=== PATIENT | female | born 1995 | race Caucasian/White ===

== ENCOUNTER → 2018-03-25 | Outpatient (CLI) | payer OTHER ==
--- NOTE | 2018-03-25 12:59 | MR ---
EXAMINATION TYPE: MR brain wo con DATE OF EXAM: 03/25/2018 COMPARISON: NONE HISTORY: Headache TECHNIQUE: Multiplanar, multisequence imaging of the brain and brainstem is performed without IV cont rast. FINDINGS: Diffusion weighted images demonstrate no evidence of a recent infarct or other diffusion abnormality. There is no significant white matter signal abnormality. Slight prominence of CSF in the midline of t he posterior aspect posterior fossa could reflect arachnoid cyst measuring 1.8 cm AP diameter by 1.6 cm transversely by 3.7 cm craniocaudal diameter sagittal image 10. The ventricular system and cistern al spaces are normal in size and appearance. The brain volume is age appropriate. Midline structures demonstrate normal morphology. The craniocervical junction appears within normal limits. Normal vascular flow voids are present. The visualized sinuses are clear and the globes are i ntact. IMPRESSION: Probable posterior midline posterior fossa 3.7 cm vertical oriented arachnoid cyst with l ocal mass effect.
== END | disposition home or self-care (01) ==
LOC: RADMRIMAIN 12:10
PROVIDERS: ATTEND Psychiatry & Neurology Neurology
DX: R51 Headache (principal); Z88.0 Allergy status to penicillin; Z88.8 Allergy status to other drugs, medicaments and biological substances
CPT/HCPCS: 70551

== ENCOUNTER → 2021-04-05 | Outpatient (CLI) | payer OTHER ==
--- NOTE | 2021-04-05 13:58 | XR ---
EXAMINATION TYPE: XR chest 2V DATE OF EXAM: 04/05/2021 COMPARISON: Chest x-ray 01/26/2014 HISTORY: R61 GEN HYPERHIDROSIS TECHNIQUE: Frontal and lateral views of the chest are obtained. FINDINGS: There is no focal air space opacity, pleural effusion, or pneumothorax seen. The cardiac silhouette size is within normal limits. Prominent lung line can be seen in COPD. The osseous structu res are intact. IMPRESSION: No acute cardiopulmonary process.
== END | disposition home or self-care (01) ==
LOC: RADXRYALE 11:45
PROVIDERS: ATTEND Physician Assistant
DX: R61 Generalized hyperhidrosis (principal)
CPT/HCPCS: 71046

== ENCOUNTER → 2021-10-02 | Outpatient (CLI) | payer OTHER ==
--- NOTE | 2021-10-02 17:09 | US ---
EXAMINATION TYPE: US abdomen complete DATE OF EXAM: 10/02/2021 COMPARISON: NONE CLINICAL HISTORY: R10.2 PELVIC PAIN N944 DYSMENORRHEA N92.5 IRREG. Abdomen pain x 2 months EXAM MEASUREMENTS: Liver Length: 17.5 cm Gallbladder Wall: 0.2 cm CBD: 0.2 cm Spleen: 10.6 cm Right Kidney: 9.2 x 3.8 x 5.0 cm Left Kidney: 9.2 x 4.5 x 4.6 cm Pancreas: wnl Liver: No discrete masses. Liver is enlarged. Gallbladder: wnl Evidence for sonographic Carlos's sign: no CBD: wnl Spleen: wnl Right Kidney: wnl Left Kidney: wnl Upper IVC: wnl Abd Aorta: wnl IMPRESSION: 1. Hepatomegaly
--- NOTE | 2021-10-02 17:17 | US ---
EXAMINATION TYPE: US pelvic complete DATE OF EXAM: 10/02/2021 COMPARISON: NONE CLINICAL HISTORY: R10.2 PELVIC PAIN N944 DYSMENORRHEA N92.5 IRREG. Abdomen pain x 2 months, 2 weeks o f irregular bleeding TECHNIQUE: . Transabdominal sonographic images of the pelvis were acquired. Date of LMP: 08/30/2021 EXAM MEASUREMENTS: Uterus: 10.3 x 3.6 x 5.0 cm Endometrial Stripe: 0.6 cm Right Ovary: 3.3 x 1.6 x 3.0 cm Left Ovary: 3.6 x 1.9 x 2.2 cm 1. Uterus: wnl 2. Endometrium: appears wnl 3. Right Ovary: wnl 4. Left Ovary: wnl 5. Bilateral Adnexa: wnl 6. Posterior cul-de-sac: wnl Urinary bladder is sonolucent. Posterior wall is unremarkable. IMPRESSION: 1. Small follicles bilateral ovaries. 2. Normal appearing pelvic ultrasound
== END | disposition home or self-care (01) ==
LOC: RADUSWWP 07:54
PROVIDERS: ATTEND Family Medicine
DX: R16.0 Hepatomegaly, not elsewhere classified (principal); N83.02 Follicular cyst of left ovary; N83.01 Follicular cyst of right ovary
CPT/HCPCS: 76700; 76856

== ENCOUNTER 2022-01-07 06:29 | Day surgery (SDC) | payer OTHER ==
[~2022-01-07 06:29] MED LIST: LIDOCAINE 1% (10MG/ML) FOR IV START INTRADERMA PRN
[2022-01-07] MEDS: LACTATED RINGERS 1,000 ML IV SCH ×2 (07:12→07:21)
[2022-01-07 07:15] VITALS: TEMP 98.3
[2022-01-07] MEDS ORDERED: MIDAZOLAM 2 MG/2 ML VIAL ONE (07:22)
[2022-01-07] MEDS ORDERED: LIDOCAINE 2% INJ 20 MG/ML (2 ML VIAL) ONE (07:22)
[2022-01-07] MEDS ORDERED: PROPOFOL 10 MG/ML 20 ML VIAL IV ONE (07:22)
--- NOTE | 2022-01-07 07:44 | P.PCN ---
Date of Procedure: 01/07/22 Procedure(s) Performed: Brief history: Patient is a 26-year-old white female pleasant scheduled for an elective upper endoscopy as well as colonoscopy as a part of evaluation of abdominal pain, chronic diarrhea and progressive weight loss of almost 25 pounds in the last 2 months duration. She has been having diarrhea with 5-6 loose to watery bowel movements but no blood in the stool. Has intermittent lower abdominal discomfort. She lost approximately 20 pounds in the last 2 months. Procedure performed: Esophagogastroduodenoscopy with biopsy Colonoscopy with biopsy Preoperative diagnosis: Chronic diarrhea/intermittent abdominal pain Progressive weight loss Anesthesia: MAC Procedure: After informed consent was obtained from the patient was brought into the endoscopy unit and IV sedation was administered by anesthesia under continuous monitoring. Initially upper endoscopy was done. The Olympus GF 160 video endoscope was inserted inserted into the mouth and esophagus intubated without any difficulty and was gradually advanced into the stomach and duodenum and carefully examined. The bulb and second part of the duodenum appeared normal. Biopsies were done from the duodenum to rule out celiac disease. The scope was then withdrawn into the stomach adequately insufflated with air and upon careful examination the antrum had mild gastritis and biopsies were done from this area. The body, cardia and fundus appeared normal. The scope was then withdrawn into the esophagus. Small sliding type hiatal hernia noted. The GE junction was located at 40 cm to the incisors. It appeared regular with no erythema erosions or ulcerations. Rest of the esophagus appeared normal. Patient tolerated the procedure well. At this time the patient continued to remain sedation. Initial digital rectal examination was normal. Olympus CF 160 video colonoscope was then inserted into the rectum and gradually advanced to the cecum without any difficulty. Careful examination was performed as the scope was gradually being withdrawn. The prep was excellent. Terminal ileum was intubated and 20 cm visualized and appeared normal. Biopsies were done from this area. The cecum, ascending colon, transverse colon, descending colon, sigmoid colon and rectum appeared normal. Random biopsies were done from ascending and descending colon to rule out microscopic/collagenous colitis. Retroflexion was performed in the rectum and no lesions were noted. Patient tolerated the procedure well. Impression: 1. Upper endoscopy revealed mild antral gastritis and small hiatal hernia 2. Colonoscopy was within normal limits with no evidence of colitis or colorectal neoplasia Recommendations: Findings of this examination were discussed with the patient as well as her family. She was advised to follow with the the biopsy results. She'll be seen in office in 2 weeks
[2022-01-07 07:49] VITALS: RESP 16
[2022-01-07 08:05] VITALS: BP 114/77; PULSE 54
== END 2022-01-07 08:30 | disposition home or self-care (01) ==
LOC: ORWHC2ENDO 06:29
PROVIDERS: ATTEND Internal Medicine Gastroenterology
DX: K29.50 Unspecified chronic gastritis without bleeding (principal); K44.9 Diaphragmatic hernia without obstruction or gangrene; R63.4 Abnormal weight loss; K52.9 Noninfective gastroenteritis and colitis, unspecified; F41.9 Anxiety disorder, unspecified; F32.9 Major depressive disorder, single episode, unspecified; R10.84 Generalized abdominal pain; F17.200 Nicotine dependence, unspecified, uncomplicated; Z91.040 Latex allergy status; Z88.0 Allergy status to penicillin; Z88.8 Allergy status to other drugs, medicaments and biological substances
CPT/HCPCS: 81025; 88305; 45380; 43239; J2250; J2704; J2001

== ENCOUNTER 2023-12-28 09:00 | Day surgery (SDC) | payer OTHER ==
[~2023-12-28 09:00] MED LIST changes: +DEXAMETHASONE SOD PHOSPHATE 4 MG/ML 1 ML VIAL ONE; -LIDOCAINE 1% (10MG/ML) FOR IV START INTRADERMA PRN; +ONDANSETRON 4 MG/2 ML VIAL ONE
[2023-12-28] MEDS ORDERED: KETOROLAC 15 MG/ML 1 ML VIAL ONE (09:32)
[2023-12-28] MEDS ORDERED: fentaNYL (PF) 50 MCG/ML 2 ML AMP ONE (09:32)
[2023-12-28] MEDS ORDERED: MIDAZOLAM 2 MG/2 ML VIAL ONE (09:32)
[2023-12-28] MEDS ORDERED: PROPOFOL 10 MG/ML 20 ML VIAL IV ONE (09:32)
[2023-12-28] MEDS ORDERED: LIDOCAINE 1% INJ 10MG/ML (20 ML MDV) ONE (09:32)
[2023-12-28] MEDS ORDERED: LACTATED RINGERS 1,000 ML BAG ONE (09:35)
[2023-12-28] MEDS ORDERED: FERRIC SUBSULFATE (MONSELS) JAR TOPICAL ONE (09:35)
--- NOTE | 2024-01-08 15:52 | OP ---
OPERATIVE REPORT DATE OF SERVICE : PREOPERATIVE DIAGNOSIS: Cervical intraepithelial neoplasia, grade 2. POSTOPERATIVE DIAGNOSIS: Cervical intraepithelial neoplasia, grade 2. PROCEDURE: Loop electrocautery excision procedure. SPECIMENS: Cervical cone. ESTIMATED BLOOD LOSS: 1 mL. URINE OUTPUT: 40 mL. COMPLICATIONS: None. CONDITION: Stable. PROCEDURE IN DETAIL: The patient was taken to the operating room. General anesthesia was obtained without difficulty. She was prepped and draped in normal sterile fashion in dorsal lithotomy position, legs were placed in the [place] stirrups. Coated bivalve speculum was placed in the vagina, and the cervix was visualized without issue. A 2 cm loop was hooked to cautery and 1 pass was made to obtain a cervical cone specimen. The crater left from the cervical cone was cauterized with the ball cautery. Monsel's was also placed. Hemostasis was assured. The patient tolerated the procedure well. Sponge and instrument counts were correct x2. She was taken to Recovery in stable condition. MMODL / IJN: [id number] /
== END 2023-12-28 11:26 ==
LOC: OR 09:00
PROVIDERS: ATTEND Obstetrics & Gynecology
DX: N87.1 Moderate cervical dysplasia
CPT/HCPCS: 81025; 88307